=== PATIENT | male | born 1950 | race Caucasian/White ===

== ENCOUNTER 2020-05-27 09:49 | Inpatient (IN) | payer MEDICARE, OTHER ==
[~2020-05-27] VITALS: Ht 170.2 cm; Wt 72.2 kg
[2020-05-27] MEDS ORDERED: CALC.25 PO (10:08)
[2020-05-27] MEDS ORDERED: Fosinopril Sodi10 MG PO (10:08)
[2020-05-27] MEDS ORDERED: GABA100 PO (10:10)
[2020-05-27] MEDS ORDERED: Norco 10-325 T1 EACH PO (10:11)
[2020-05-27] MEDS ORDERED: EUTHYROX100 MC1 PO (10:12)
[2020-05-27] MEDS ORDERED: BASAGLAR K100 UNIT/1 SC (10:12)
[2020-05-27] MEDS ORDERED: Narcan 0.40.4 MG/ML (10:13)
[2020-05-27] MEDS ORDERED: TRIA15CR3 TOP (10:14)
[2020-05-27 11:04] LABS: BASOPHILS ABSOLUTE AUTO 0.03 K/mm3 (0.00-0.23); BASOPHILS PERCENT AUTO 1 % (0-2); EOSINOPHILS ABSOLUTE AUTO 0.15 K/mm3 (0.00-0.68); EOSINOPHILS PERCENT AUTO 3 % (0-6); Hematocrit 30.8 % (37.0-53.0); Hemoglobin 9.7 g/dL (13.5-17.5); IMMATURE GRAN ABSOLUTE AUTO 0.01 K/mm3 (0.00-0.10); IMMATURE GRAN PERCENT AUTO 0 % (0-1); LYMPHOCYTES ABSOLUTE AUTO 1.11 K/mm3 (0.84-5.20); LYMPHOCYTES PERCENT AUTO 23 % (21-46); MONOCYTES ABSOLUTE AUTO 0.55 K/mm3 (0.16-1.47); MONOCYTES PERCENT AUTO 11 % (4-13); Mean Corpuscular HGB 30.9 pg (26.0-34.0); Mean Corpuscular HGB Conc 31.5 g/dL (31.5-36.5); Mean Corpuscular Volume 98 fL (80-100); Mean Platelet Volume 10.5 fL (9.1-12.4); NEUTROPHILS ABSOLUTE AUTO 2.98 K/mm3 (1.96-9.15); NEUTROPHILS PERCENT AUTO 62 % (41-73); Platelet Count 223 K/mm3 (150-400); RDW Coefficient Variation 12.4 % (11.7-14.2); RDW Standard Deviation 44.7 fL (35.1-46.3); Red Blood Cell Count 3.14 M/mm3 (4.30-5.90); White Blood Cell Count 4.83 K/mm3 (4.00-11.30)
[2020-05-27 11:32] LABS: Albumin, Blood 3.4 g/dL (3.4-5.0); Albumin/Globulin Ratio 1.1 (0.8-1.8); Bilirubin, Total 0.4 mg/dL (0.1-1.0); Bun/Creatinine Ratio 15.8 (12.0-20.0); Calcium, Blood 8.7 mg/dL (8.5-10.1); Creatinine, Blood 1.9 mg/dL (0.60-1.20); Globulin, Blood 3.2 g/dL (2.2-4.0); Potassium, Blood 4.9 mmol/L (3.5-5.5); Total Protein, Blood 6.6 g/dL (6.4-8.2)
[2020-05-27 11:34] LABS: Troponin I 0.755 ng/mL (0.000-0.040)
[2020-05-27] MEDS ORDERED: Aspirin EC81 MG PO (12:42)
[2020-05-27] MEDS ORDERED: Aspir 8181 MG PO (13:54)
[2020-05-27] MEDS ORDERED: HUMALOG KW100 UNIT/1 SC (13:57)
--- NOTE | 2020-05-27 13:59 | NUR ---
Echocardiogram completed.
[2020-05-27] MEDS ORDERED: FERSU300 PO (14:26)
--- NOTE | 2020-05-27 17:49 | NUR ---
SHIFT SUMMARY ED ADMIT THIS AFTERNOON. PATIENT DENIES PAIN, NAUSEA, AND SHORTNESS OF BREATH. PATIENT UP SBA IN ROOM, USING URINAL AT BEDSIDE. TRENDING TROPONINS. CARDIOLOGY CONSULTED. PATIENT ANXIOUS AND TEARFUL ABOUT HIS DOGS BEING HOME ALONE.
[2020-05-28 04:21] LABS: Hematocrit 30.8 % (37.0-53.0); Mean Corpuscular HGB 31.2 pg (26.0-34.0); Mean Corpuscular HGB Conc 32.5 g/dL (31.5-36.5); Mean Corpuscular Volume 96 fL (80-100); Mean Platelet Volume 10.2 fL (9.1-12.4); Platelet Count 208 K/mm3 (150-400); RDW Coefficient Variation 12.2 % (11.7-14.2); RDW Standard Deviation 42.5 fL (35.1-46.3); Red Blood Cell Count 3.21 M/mm3 (4.30-5.90); White Blood Cell Count 5.68 K/mm3 (4.00-11.30)
[2020-05-28 04:35] LABS: International Normalized Ratio 1.01; Prothrombin Time Results 10.8 Sec (9.7-11.5)
[2020-05-28 04:46] LABS: Anion Gap 4 mmol/L (6-16); Blood Urea Nitrogen 33 mg/dL (8-24); Bun/Creatinine Ratio 17.2 (12.0-20.0); CHOL/HDL RATIO 2.5; CO2, Blood 31 mmol/L (21-32); Calcium, Blood 8.6 mg/dL (8.5-10.1); Chloride, Blood 103 mmol/L (98-108); Cholesterol 150 mg/dL (50-200); Creatinine, Blood 1.92 mg/dL (0.60-1.20); Glomerular Filtration Rate 37 (60-); Glucose, Blood 212 mg/dL (70-99); HDL Cholesterol 60 mg/dL (>39); LDL/HDL RATIO 1.2; Low Density Lipoprotein Chol 75 mg/dL (0-110); Magnesium, Blood 1.8 mg/dL (1.6-2.4); Potassium, Blood 4.7 mmol/L (3.5-5.5); Sodium, Blood 138 mmol/L (136-145); Triglycerides 77 mg/dL (30-160); Very Low Density Lipoprot Chol 15 mg/dL (6-32)
--- NOTE | 2020-05-28 04:53 | NUR ---
END OF SHIFT SUMMARY PT AXO. VSS. HAS DENIED CP/PRESSURE T/O SHIFT. REMAINS SR 60'S TO 70'S. REMAINS ON RA. PT NPO THIS AM FOR STRESS TEST ORDERED. PT USING CALL LIGHT APPROPRIATELY. BED IN LOW POSITION. WILL CONTINUE TO MONITOR UNTIL SHIFT CHANGE.
--- NOTE | 2020-05-28 08:35 | NUR ---
pt laying in bed awake, a/ox3, pleasant and cooperative with care, follows commands well, denies any pain, reports he never had c.p. just sob, states he slept ok, lungs are clear t/o, resp even and unlabored, he reports no sob while at rest, only with activity, on r/a, hrr, tele in place running sr in the 60's, no edema noted, ppp+2, cap refill <3sec, vs stalbe, afebrile, iv site is clear and patent, btx4, abd flat soft nontender, voids without diff, skin c/w/d, maew, chuck, call light in reach, assisted to br, gait noted to be steady.
--- NOTE | 2020-05-28 13:25 | NUR ---
DR WEBSTER WAS IN TO SEE PT, PT DECIDED TO OPT FOR ANGIOGRAM OPPOSED TO STRESS TEST. STRESS TEST TO BE CANCELED AND PT WILL GO FOR ANGIO IN THE AM
--- NOTE | 2020-05-28 17:19 | NUR ---
SHIFT NOTE THIS RN ASSUMED PT CARE AT 1300 TODAY. SINCE ASSUMING PT CARE PT HAS OPTED TO GO FOR ANGIO IN THE AM INSTEAD OF HAVING STRESS TEST TODAY. PT SINCE HAS EXPRESSED CONCERN THAT HE DID NOT ASK DR WEBSTER ENOUGH QUESTIONS, PT AND FAMILY THAT ARE TEXTING HAVE THIER QUESTIONS ABOUT PROCEDURE ANSWERED. PT DOES NOT APPEAR TO HAVE A GREAT UNDERSTANDING OF MEDICAL INFORMATION BUT DOES EXPRESS UNDERSTAND WHEN THIS RN EDUCATED HIM. PT'S MORNING AND AFTERNOON INSULIN WERE HELD HE WAS NPO AND COVERAGE WAS NOT INDICATED.
--- NOTE | 2020-05-29 05:22 | NUR ---
END OF SHIFT SUMMARY PT STATED NO CHEST PAIN, BUT STATED DULL CONSISTANT PAIN IN LEGS THROUGH OUT SHIFT. AMBULATED IN [place] ABOUT 150FT, TOLERATED WELL WITH INCREASED LEG PAIN. BP STABLE 95-110 SYSTOLIC. SR RHYTHM. PT WAS QUIET AND SLEPT MAJORITY OF THE NIGHT.
--- NOTE | 2020-05-29 07:39 | NUR ---
ASSUMED PATIENT CARE. PATIENT SLEEPING COMFORTABLY IN BED, NO SIGNS OF ACUTE DISTRESS, WCTM.
--- NOTE | 2020-05-29 11:42 | NUR ---
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 NO SIGNS OF ACUTE DISTRESS, TR BAND IN PLACE, NO BLEEDING/HEMATOMA, WCTM.
--- NOTE | 2020-05-29 13:12 | NUR ---
REPORT GIVEN TO ALPA DELGADO AT [facility].
== END 2020-05-29 13:33 | disposition short-term general hospital (02) | DRG 281 ==
LOC: ER 09:49 → PCU 12:47 → UNDODEPER 15:20 → PCU 05-29 13:33
PROVIDERS: Nurse Practitioner Acute Care; Physician Assistant; ADMIT Internal Medicine
PROC: 4A023N7 Measurement of Cardiac Sampling and Pressure, Left Heart, Percutaneous Approach (ICD-10-PCS; principal; 2020-05-29)
PROC: B211YZZ Fluoroscopy of Multiple Coronary Arteries using Other Contrast (ICD-10-PCS; 2020-05-29)
DX: I21.4 Non-ST elevation (NSTEMI) myocardial infarction (principal); I13.0 Hypertensive heart and chronic kidney disease with heart failure and stage 1 through stage 4 chronic kidney disease, or unspecified chronic kidney disease; I50.20 Unspecified systolic (congestive) heart failure; N18.3 Chronic kidney disease, stage 3 (moderate); E10.22 Type 1 diabetes mellitus with diabetic chronic kidney disease; E78.5 Hyperlipidemia, unspecified; E03.9 Hypothyroidism, unspecified; J44.9 Chronic obstructive pulmonary disease, unspecified; I25.10 Atherosclerotic heart disease of native coronary artery without angina pectoris; D63.1 Anemia in chronic kidney disease; I45.10 Unspecified right bundle-branch block; Z79.82 Long term (current) use of aspirin; Z79.4 Long term (current) use of insulin; Z87.891 Personal history of nicotine dependence
CPT/HCPCS: 36415; 71045; 80048; 80053; 80061; 82947; 83735; 83880; 84439; 84443; 84481; 84484; 85025; 85027; 85347; 85610; 86850; 86900; 86901; 93005; 93010; 93306; 93458; 96372-59; 96374-59; 99152; 99153; 99285-25; A9270-GY; C1769; C1894; J1644; J1940; J2250; J3010; J7030; J7050; Q9967; U0002

== ENCOUNTER 2022-05-20 23:49 | Emergency (ER) | payer MEDICARE ==
[~2022-05-20] VITALS: Ht 170.2 cm; Wt 68.0 kg
[~2022-05-20 23:49] MED LIST: Aspir 8181 MG PO; Aspirin EC81 MG PO; BASAGLAR K100 UNIT/1 SC; CALC.25 PO; EUTHYROX100 MC1 PO; FERSU300 PO; Fosinopril Sodi10 MG PO; GABA100 PO; HUMALOG KW100 UNIT/1 SC; Narcan 0.40.4 MG/ML; Norco 10-325 T1 EACH PO; TRIA15CR3 TOP
[2022-05-21 02:16] LABS: BASOPHILS ABSOLUTE AUTO 0.03 K/mm3 (0.00-0.23); BASOPHILS PERCENT AUTO 0 % (0-2); EOSINOPHILS ABSOLUTE AUTO 0.04 K/mm3 (0.00-0.68); EOSINOPHILS PERCENT AUTO 1 % (0-6); Hematocrit 31.8 % (37.0-53.0); Hemoglobin 10.4 g/dL (13.5-17.5); IMMATURE GRAN ABSOLUTE AUTO 0.04 K/mm3 (0.00-0.10); IMMATURE GRAN PERCENT AUTO 1 % (0-1); LYMPHOCYTES ABSOLUTE AUTO 0.78 K/mm3 (0.84-5.20); LYMPHOCYTES PERCENT AUTO 10 % (21-46); MONOCYTES ABSOLUTE AUTO 0.61 K/mm3 (0.16-1.47); MONOCYTES PERCENT AUTO 8 % (4-13); Mean Corpuscular HGB 30.9 pg (26.0-34.0); Mean Corpuscular HGB Conc 32.7 g/dL (31.5-36.5); Mean Corpuscular Volume 94 fL (80-100); NEUTROPHILS ABSOLUTE AUTO 6.51 K/mm3 (1.96-9.15); NEUTROPHILS PERCENT AUTO 81 % (41-73); RDW Coefficient Variation 11.9 % (11.7-14.2); RDW Standard Deviation 41.3 fL (35.1-46.3); Red Blood Cell Count 3.37 M/mm3 (4.30-5.90); White Blood Cell Count 8.01 K/mm3 (4.00-11.30)
[2022-05-21 02:22] LABS: Albumin, Blood 3.6 g/dL (3.4-5.0); Albumin/Globulin Ratio 1.2 (0.8-1.8); Bilirubin, Total 0.5 mg/dL (0.1-1.0); Bun/Creatinine Ratio 14.9 (12.0-20.0); Calcium, Blood 8.4 mg/dL (8.5-10.1); Creatinine, Blood 1.61 mg/dL (0.60-1.20); Globulin, Blood 2.9 g/dL (2.2-4.0); Potassium, Blood 4.1 mmol/L (3.5-5.5); Total Protein, Blood 6.5 g/dL (6.4-8.2)
[2022-05-21 02:36] LABS: Mean Platelet Volume 10.5 fL (9.1-12.4); Platelet Count 150 K/mm3 (150-400)
[2022-05-21 05:14] LABS: Source, Urine Voided
[2022-05-21 05:19] LABS: Bilirubin, Urine Neg (Neg); Blood, Urine 2+ (Neg); Glucose Qualitative, Urine 2+ (Neg); Ketones, Urine Neg (Neg); Leukocyte Esterase, Urine Neg (Neg); Nitrite, Urine Neg (Neg); Protein, Urine 1+ (Neg); Urobilinogen, Urine NORM (Normal)
[2022-05-21 06:02] LABS: Appearance, Urine Clear (Clear); Color, Urine Yellow (P-Yellow)
[2022-05-21 06:03] LABS: Bacteria Not Seen /hpf; Squamous Epithelial Cells Few /hpf (Few); White Blood Cells, Urine Not Seen /hpf (0-5)
== END 2022-05-21 06:41 | disposition home or self-care (01) ==
LOC: ER 23:49
PROVIDERS: Emergency Medicine
DX: E10.649 Type 1 diabetes mellitus with hypoglycemia without coma (principal); M25.551 Pain in right hip; W17.2XXA Fall into hole, initial encounter; I12.9 Hypertensive chronic kidney disease with stage 1 through stage 4 chronic kidney disease, or unspecified chronic kidney disease; E10.22 Type 1 diabetes mellitus with diabetic chronic kidney disease; N18.30 Chronic kidney disease, stage 3 unspecified; E03.9 Hypothyroidism, unspecified; Z79.899 Other long term (current) drug therapy; Z79.4 Long term (current) use of insulin; Z87.891 Personal history of nicotine dependence
CPT/HCPCS: 73502; 80053; 81001; 85025

== ENCOUNTER 2022-07-10 01:10 | Inpatient (IN) | payer MEDICARE ==
[~2022-07-10] VITALS: Ht 170.2 cm; Wt 64.5 kg
[2022-07-10 03:19] LABS: BASOPHILS ABSOLUTE AUTO 0.03 K/mm3 (0.00-0.23); BASOPHILS PERCENT AUTO 0 % (0-2); EOSINOPHILS ABSOLUTE AUTO 0.09 K/mm3 (0.00-0.68); EOSINOPHILS PERCENT AUTO 1 % (0-6); Hematocrit 30.7 % (37.0-53.0); Hemoglobin 9.7 g/dL (13.5-17.5); IMMATURE GRAN ABSOLUTE AUTO 0.03 K/mm3 (0.00-0.10); IMMATURE GRAN PERCENT AUTO 0 % (0-1); LYMPHOCYTES ABSOLUTE AUTO 1.19 K/mm3 (0.84-5.20); LYMPHOCYTES PERCENT AUTO 14 % (21-46); MONOCYTES ABSOLUTE AUTO 1.06 K/mm3 (0.16-1.47); MONOCYTES PERCENT AUTO 12 % (4-13); Mean Corpuscular HGB 30.5 pg (26.0-34.0); Mean Corpuscular HGB Conc 31.6 g/dL (31.5-36.5); Mean Corpuscular Volume 97 fL (80-100); Mean Platelet Volume 10.5 fL (9.1-12.4); NEUTROPHILS PERCENT AUTO 72 % (41-73); Platelet Count 176 K/mm3 (150-400); RDW Coefficient Variation 12.2 % (11.7-14.2); RDW Standard Deviation 43.2 fL (35.1-46.3); Red Blood Cell Count 3.18 M/mm3 (4.30-5.90)
[2022-07-10 03:34] LABS: Bun/Creatinine Ratio 16.6 (12.0-20.0); Creatinine, Blood 1.57 mg/dL (0.60-1.20); Potassium, Blood 4.5 mmol/L (3.5-5.5)
[2022-07-10 04:11] LABS: International Normalized Ratio 1.12; Prothrombin Time Results 11.7 Sec (9.7-11.5)
[2022-07-10 04:25] LABS: Source, Urine Foley catheter
[2022-07-10] MEDS ORDERED: LISI5 PO (04:26)
[2022-07-10] MEDS ORDERED: CARV3.125 PO (04:28)
--- NOTE | 2022-07-10 04:56 | NUR ---
PT NEW ER ADMIT FOR RIGHT HIP FX. PT A/O, VSS. RLE SHORTENED, CAP REFILL WNL, PEDAL PULSES WEAK, PT DENIES N/T. ABRASION NOTED TO RIGHT FORARM/ELBOW. PT ORIENTED TO ROOM/CALL LIGHT AND NPO STATUS. PLAN TO AWAIT ORTHO CONSULT.
[2022-07-10 05:09] LABS: Appearance, Urine Clear (Clear); Bilirubin, Urine Neg (Neg); Blood, Urine 3+ (Neg); Color, Urine Yellow (P-Yellow); Glucose Qualitative, Urine 3+ (Neg); Ketones, Urine Neg (Neg); Leukocyte Esterase, Urine Neg (Neg); Nitrite, Urine Neg (Neg); Protein, Urine 2+ (Neg); Urobilinogen, Urine NORM (Normal)
[2022-07-10 05:19] LABS: Bacteria Few /hpf; Hyaline Casts 0-2 /lpf (0-2); Squamous Epithelial Cells Rare /hpf (Few); White Blood Cells, Urine 0-2 /hpf (0-5)
[2022-07-10 06:13] LABS: SARS-Cov-2 (COVID-19) PCR, MMC NEGATIVE (NEGATIVE)
--- NOTE | 2022-07-10 07:50 | NUR ---
PT NEW ADMIT THIS AM FOR R HIP FX. PT VSS SINCE ARRIVING TO FLOOR. MED FOR PAIN X1 W/REP RELIEF. PT NPO, AWAITING ORTHO CONSULT.
--- NOTE | 2022-07-10 14:12 | NUR ---
PT HAS A 20 IV IN LEFT HAND THAT FLUSHES WELL AND SHOWS NO SIGNS OF INFILTRATION.
--- NOTE | 2022-07-10 14:41 | NUR ---
PT TO DAY SURGERY AT THIS TIME.
--- NOTE | 2022-07-10 17:37 | NUR ---
SHIFT SUMMARY PT CAME IN FOR R HIP FRACTURE AFTER FALLING AT HOME. PT TO DAY SURGERY FOR HIP REPAIR. 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 PT STILL IN DAY SURGERY AT THIS TIME.
--- NOTE | 2022-07-10 20:41 | NUR ---
CARE ASSUMPTION PT A&OX4, DROWSY. SP02>90% ON RA, RR 14. R HIP FX, HAD SURGERY THIS AFTERNOON. SITE W/ 3 AQUACEL, NO SATURATION OF DRESSINGS. PEDAL PULSES EQUAL. PT C/O OF 10/10 R HIP PAIN. D/T PT SHALLOW/SLOW RESPIRATIONS, EDUCATED PT ON PAIN MEDS AFFECT ON RESPIRATORY STATUS AND OPTED FOR APPLIED ICE TO AFFECTED AREA. ICE ON FOR 20 MIN PER ORDERS, PT STATES SOME RELIEF WITH COLD APPLICATION. WILL CONTINUE TO APPLY ICE HOURLY AND MONITOR PAIN/RESPIRATORY STATUS. BRAY DRAINING TO GRAVITY. CALL LIGHT IN REACH.
[2022-07-11 05:52] LABS: BASOPHILS PERCENT AUTO 0 % (0-2); EOSINOPHILS PERCENT AUTO 0 % (0-6); Hematocrit 26.4 % (37.0-53.0); Hemoglobin 8.6 g/dL (13.5-17.5); IMMATURE GRAN ABSOLUTE AUTO 0.02 K/mm3 (0.00-0.10); IMMATURE GRAN PERCENT AUTO 0 % (0-1); LYMPHOCYTES ABSOLUTE AUTO 0.52 K/mm3 (0.84-5.20); LYMPHOCYTES PERCENT AUTO 6 % (21-46); MONOCYTES ABSOLUTE AUTO 0.84 K/mm3 (0.16-1.47); MONOCYTES PERCENT AUTO 10 % (4-13); Mean Corpuscular HGB 31.5 pg (26.0-34.0); Mean Corpuscular HGB Conc 32.6 g/dL (31.5-36.5); Mean Corpuscular Volume 97 fL (80-100); Mean Platelet Volume 10.9 fL (9.1-12.4); NEUTROPHILS ABSOLUTE AUTO 6.82 K/mm3 (1.96-9.15); NEUTROPHILS PERCENT AUTO 83 % (41-73); Platelet Count 142 K/mm3 (150-400); RDW Coefficient Variation 12.1 % (11.7-14.2); RDW Standard Deviation 42.7 fL (35.1-46.3); Red Blood Cell Count 2.73 M/mm3 (4.30-5.90)
[2022-07-11 06:17] LABS: Anion Gap 10 mmol/L (6-16); Blood Urea Nitrogen 32 mg/dL (8-24); Bun/Creatinine Ratio 21.5 (12.0-20.0); CO2, Blood 23 mmol/L (21-32); Calcium, Blood 8.3 mg/dL (8.5-10.1); Chloride, Blood 103 mmol/L (98-108); Creatinine, Blood 1.49 mg/dL (0.60-1.20); Glomerular Filtration Rate 49 (60-); Glucose, Blood 300 mg/dL (70-99); Phosphorus, Blood 4.1 mg/dL (2.5-4.9); Potassium, Blood 5.4 mmol/L (3.5-5.5); Sodium, Blood 136 mmol/L (136-145)
--- NOTE | 2022-07-11 09:22 | NUR ---
PT CBG 361, CALL MADE TO DR. DOWLING. SEE NEW ORDERS.
--- NOTE | 2022-07-11 15:17 | NUR ---
PT ABLE TO SIT ON EDGE OF THE BED WITH THE HELP OF THIS RN AND SAE PABLO. PT ATTEMPTED TO STANDS USING WALKER AND TTWB BUT WASN'T ABLE TO DUE TO WEAKNESS AND PAIN. PT MEDICATED WITH BREAKTHROUGH FENTANYAL AND STILL UNABLE TO STAND. PT HELPED BACK INTO BED. CALL LIGHT IN REACH.
--- NOTE | 2022-07-11 19:53 | NUR ---
HIGH CBG: AT [address] DOWLING NOTIFIED SEE ADDITIONAL INSULIN COVERAGE, ORDERED X1 DOSE.
--- NOTE | 2022-07-11 19:55 | NUR ---
CBG'S: INSULIN PER CARB COUNT ORDERED FOR DINNER. PER CARB COUNT, PT TO RECEIVE 3 UNITS FOR A CBG OF 333. DR. DOWLING CALLED TO VERIFY THIS ORDER. SEE NEW ORDERS.
--- NOTE | 2022-07-11 19:58 | NUR ---
SUMMARY: PT IS POD1 R HIP REPAIR. A/O, VSS, TELE WNL. SURGICAL SITE HAS SOME SHADOWING, NO ACTIVE BLEED NOTED TONIGHT. CSM INTACT. SEE PREVIOUS NOTES AND EMAR FOR DETAILS ON INSULIN COVERAGE. PT PAIN APPEARS TO BE WELL MANAGED WHILE AT REST WITH 1 NARCO Q4. NO ACUTE CONCERNS AT THIS TIME. REPORT PASSED TO NOC DANNY FRANCO
--- NOTE | 2022-07-12 07:39 | NUR ---
SUMMARY PT INTOLERANT OF REPOSITIONING MOST OF SHIFT. AFTR 2 DOSES OF NORCO 2 PO PT ALLOWING REPOSITIONING.FINALLY ABLE TO CHECK SKIN TO BOTTOM AND CHANGE R HIP DRESSINGS.DAY RN AND THIS RN SPOKE WITH PT ABOUT IMPORTANCE OF GETTING OOB, REPOSITIONING ANC CDB.URINE IN BRAY GETTING MEDICARE COMPLIANCE AUDITOR AND SATISF OUTPUT WITH ACTIVITY CAN D/C TODAY.
[2022-07-12 13:27] LABS: SARS-Cov-2 (COVID-19) PCR, MMC NEGATIVE (NEGATIVE)
--- NOTE | 2022-07-12 13:44 | NUR ---
Pt. is drowsing in a recliner, but responds when I enter the room. Pt. is pleasant but is unsettled about spiritual things and upcoming transfer to a SNF. Listen empathetically, and facilitated a life review. Pt. verbalized that he has suffered losses in his family and has not identified with people of [place] because of the pain of loss. Provide pastoral care, and seek to normalize the Pt. experience. Built rapport with Pt. Pt. verbalized gratitude for the spiritual care visit.
--- NOTE | 2022-07-12 18:24 | NUR ---
SHIFT SUMMARY PT POD #2 FOR R FEMUR PINNING. PT'S PAIN CONTROL IMPROVED TODAY AND HE WAS ABLE TO AMBULATED TO THE CHAIR WITH A 2 PERSON ASSIST. ASA DC'D AND PT ABLE TO VOID IN THE BSC. AQUACEL DRESSINGS CHANGED THIS AM AND REMAIN CDI. LOW SLIDING SCALE ADDED TO CARB COUNT AND BLOOD GLUCOSE BETTER CONTROLLED. PT DC'D TO EULALIA HARRISON AND REPORT CALLED TO EULALIA HARRISON RN.
== END 2022-07-12 18:06 | DRG 482 ==
LOC: ER 01:10 → SURS 03:10
PROVIDERS: Internal Medicine; Student in an Organized Health Care Education/Training Program; ADMIT Internal Medicine
PROC: 0QS606Z Reposition Right Upper Femur with Intramedullary Internal Fixation Device, Open Approach (ICD-10-PCS; principal; 2022-07-11)
DX: S72.141A Displaced intertrochanteric fracture of right femur, initial encounter for closed fracture (principal); Z20.822 Contact with and (suspected) exposure to COVID-19; I12.9 Hypertensive chronic kidney disease with stage 1 through stage 4 chronic kidney disease, or unspecified chronic kidney disease; D63.1 Anemia in chronic kidney disease; N18.30 Chronic kidney disease, stage 3 unspecified; I25.10 Atherosclerotic heart disease of native coronary artery without angina pectoris; E10.22 Type 1 diabetes mellitus with diabetic chronic kidney disease; E03.9 Hypothyroidism, unspecified; E10.65 Type 1 diabetes mellitus with hyperglycemia; J44.9 Chronic obstructive pulmonary disease, unspecified; I25.2 Old myocardial infarction; Z95.1 Presence of aortocoronary bypass graft; Z87.891 Personal history of nicotine dependence; Z79.4 Long term (current) use of insulin; Z79.82 Long term (current) use of aspirin; Z79.899 Other long term (current) drug therapy; W18.39XA Other fall on same level, initial encounter; Y92.194 Driveway of other specified residential institution as the place of occurrence of the external cause
CPT/HCPCS: 36415; 51702; 73502; 73552; 80048; 80069; 81001; 82947; 85025; 85610; 85730; 86850; 86900; 86901; 96374-59; 96375-59; 96376-59; 97110; 97161; 97530; 99285-25; A9270; C1713; J0690; J1100; J1170; J1650; J1815; J2405; J3010; J7120; U0004

== ENCOUNTER 2022-12-11 18:48 | Observation (INO) | payer MEDICARE, OTHER ==
[~2022-12-11] VITALS: Ht 170.2 cm; Wt 70.3 kg
[~2022-12-11 18:48] MED LIST changes: +CARV25 PO; +LISI5 PO
[2022-12-11 19:18] LABS: BASOPHILS ABSOLUTE AUTO 0.03 K/mm3 (0.00-0.23); BASOPHILS PERCENT AUTO 1 % (0-2); EOSINOPHILS ABSOLUTE AUTO 0.27 K/mm3 (0.00-0.68); EOSINOPHILS PERCENT AUTO 4 % (0-6); Hematocrit 32.9 % (37.0-53.0); IMMATURE GRAN ABSOLUTE AUTO 0.03 K/mm3 (0.00-0.10); IMMATURE GRAN PERCENT AUTO 1 % (0-1); LYMPHOCYTES ABSOLUTE AUTO 1.37 K/mm3 (0.84-5.20); LYMPHOCYTES PERCENT AUTO 21 % (21-46); MONOCYTES ABSOLUTE AUTO 0.69 K/mm3 (0.16-1.47); MONOCYTES PERCENT AUTO 11 % (4-13); Mean Corpuscular HGB 30.8 pg (26.0-34.0); Mean Corpuscular HGB Conc 33.4 g/dL (31.5-36.5); Mean Corpuscular Volume 92 fL (80-100); Mean Platelet Volume 10.5 fL (9.1-12.4); NEUTROPHILS ABSOLUTE AUTO 4.04 K/mm3 (1.96-9.15); NEUTROPHILS PERCENT AUTO 63 % (41-73); Platelet Count 197 K/mm3 (150-400); RDW Coefficient Variation 12.9 % (11.7-14.2); RDW Standard Deviation 43.9 fL (35.1-46.3); Red Blood Cell Count 3.57 M/mm3 (4.30-5.90); White Blood Cell Count 6.43 K/mm3 (4.00-11.30)
[2022-12-11 19:42] LABS: Albumin, Blood 3.4 g/dL (3.4-5.0); Bilirubin, Total 0.5 mg/dL (0.1-1.0); Calcium, Blood 8.8 mg/dL (8.5-10.1); Creatinine, Blood 1.87 mg/dL (0.60-1.20); Globulin, Blood 3.5 g/dL (2.2-4.0); Potassium, Blood 4.5 mmol/L (3.5-5.5); Total Protein, Blood 6.9 g/dL (6.4-8.2)
[2022-12-11] MEDS ORDERED: AMLODIPINE BES2.5 MG PO (23:24)
[2022-12-11] MEDS ORDERED: Cardura1 MG PO (23:25)
[2022-12-11] MEDS ORDERED: ATOR40TA PO (23:27)
[2022-12-12] MEDS ORDERED: HUMALOG KW100 UNIT/1 SC (00:10)
[2022-12-12] MEDS ORDERED: MIRALAX17 GM PO (00:11)
--- NOTE | 2022-12-12 05:22 | NUR ---
PT IS A&O4, INDEPENDENT WITH ADLS, RA, VSS, NO COMPLAINTS OF CHEST PAIN THIS SHIFT, STRESS TEST AND ECHO OREDERED, CONTINUE POC
[2022-12-12 06:13] LABS: Albumin, Blood 3.2 g/dL (3.4-5.0); Anion Gap 4 mmol/L (6-16); Blood Urea Nitrogen 26 mg/dL (8-24); Bun/Creatinine Ratio 15.3 (12.0-20.0); CO2, Blood 25 mmol/L (21-32); Calcium, Blood 8.7 mg/dL (8.5-10.1); Chloride, Blood 109 mmol/L (98-108); Glomerular Filtration Rate 42 (60-); Glucose, Blood 117 mg/dL (70-99); Phosphorus, Blood 2.8 mg/dL (2.5-4.9); Potassium, Blood 4.2 mmol/L (3.5-5.5); Sodium, Blood 138 mmol/L (136-145)
--- NOTE | 2022-12-12 19:00 | NUR ---
END OF SHIFT SUMMARY: PATIENT DENIED PAIN OR DISCOMFORT THROUGHOUT THE DAY. PATIENT UP TO THE BATHROOM ROOM MULTIPLE TIMES. PATIENT REPORTED MILD SHORTNESS OF BREATH, BUT DENIED THE LEVEL OF SHORTNESS OF BREATH THAT BROUGHT HIM INTO THE HOSPITAL. PATIENT HAD HIS STRESS TEST TODAY. PATIENT TOLERATED WELL. PER DR. GONZÁLES, PATIENT READY FOR DISCHARGE. DISCHARGE INSTRUCTIONS AND EDUCATION PROVIDED TO THE PATIENT. ALL QUESTIONS AND CONCERNS ADDRESSED. NO NEW RX TO HAVE ORDERED. PATIENT DISCHARGED IN WHEELCHAIR WITH SUPERVISOR PREPRESS. PATIENT STABLE AT TIME OF DISCHARGE.
== END 2022-12-12 18:40 | disposition home or self-care (01) ==
LOC: ER 18:48 → MEDS 18:49
PROVIDERS: Emergency Medicine; ADMIT Internal Medicine
DX: R06.00 Dyspnea, unspecified (principal); I25.10 Atherosclerotic heart disease of native coronary artery without angina pectoris; Z95.1 Presence of aortocoronary bypass graft; J44.9 Chronic obstructive pulmonary disease, unspecified; E10.22 Type 1 diabetes mellitus with diabetic chronic kidney disease; N18.30 Chronic kidney disease, stage 3 unspecified; I12.9 Hypertensive chronic kidney disease with stage 1 through stage 4 chronic kidney disease, or unspecified chronic kidney disease; D63.1 Anemia in chronic kidney disease; Z87.891 Personal history of nicotine dependence
CPT/HCPCS: 36415; 71046; 78452; 80053; 80069; 82947; 84484; 85025; 93005; 93010; 93017; 93306; 94760; 96372; A9270; A9500; G0378; J0280; J1650; J1815; J2785

== ENCOUNTER 2024-04-19 11:11 | Emergency (ER) | payer MEDICARE ==
[~2024-04-19] VITALS: Ht 170.2 cm; Wt 70.3 kg
[~2024-04-19 11:11] MED LIST changes: +AMLODIPINE BES2.5 MG PO; +ATOR40TA PO; +Cardura1 MG PO; +MIRALAX17 GM PO
[2024-04-19 12:26] VITALS: BP 150/51
== END 2024-04-19 13:03 | disposition home or self-care (01) ==
LOC: ER 11:11
DX: R07.89 Other chest pain (principal); E10.22 Type 1 diabetes mellitus with diabetic chronic kidney disease; I12.9 Hypertensive chronic kidney disease with stage 1 through stage 4 chronic kidney disease, or unspecified chronic kidney disease; N18.9 Chronic kidney disease, unspecified; I25.2 Old myocardial infarction; E03.9 Hypothyroidism, unspecified; Z79.4 Long term (current) use of insulin; Z79.82 Long term (current) use of aspirin; Z79.85 Long-term (current) use of injectable non-insulin antidiabetic drugs
CPT/HCPCS: 71046; 93005; 93010; 99283-25

== ENCOUNTER 2024-10-06 17:04 | Emergency (ER) | payer MEDICARE ==
[~2024-10-06] VITALS: Ht 170.2 cm; Wt 69.8 kg
[2024-10-06 17:31] LABS: BASOPHILS ABSOLUTE AUTO 0.04 K/mm3 (0.00-0.23); BASOPHILS PERCENT AUTO 0 % (0-2); EOSINOPHILS ABSOLUTE AUTO 0.06 K/mm3 (0.00-0.68); EOSINOPHILS PERCENT AUTO 1 % (0-6); Hematocrit 38.3 % (37.0-53.0); Hemoglobin 12.7 g/dL (13.5-17.5); IMMATURE GRAN ABSOLUTE AUTO 0.04 K/mm3 (0.00-0.10); IMMATURE GRAN PERCENT AUTO 0 % (0-1); LYMPHOCYTES ABSOLUTE AUTO 1.41 K/mm3 (0.84-5.20); LYMPHOCYTES PERCENT AUTO 16 % (21-46); MONOCYTES ABSOLUTE AUTO 0.88 K/mm3 (0.16-1.47); MONOCYTES PERCENT AUTO 10 % (4-13); Mean Corpuscular HGB 32.3 pg (26.0-34.0); Mean Corpuscular HGB Conc 33.2 g/dL (31.5-36.5); Mean Corpuscular Volume 98 fL (80-100); Mean Platelet Volume 9.7 fL (9.1-12.4); NEUTROPHILS ABSOLUTE AUTO 6.67 K/mm3 (1.96-9.15); NEUTROPHILS PERCENT AUTO 73 % (41-73); Platelet Count 256 K/mm3 (150-400); RDW Coefficient Variation 12.7 % (11.7-14.2); RDW Standard Deviation 45.7 fL (35.1-46.3); Red Blood Cell Count 3.93 M/mm3 (4.30-5.90)
[2024-10-06 18:23] LABS: Albumin, Blood 3.9 g/dL (3.4-5.0); Bilirubin, Total 0.8 mg/dL (0.1-1.0); Bun/Creatinine Ratio 13.3 (12.0-20.0); Creatinine, Blood 2.86 mg/dL (0.60-1.20); Globulin, Blood 3.8 g/dL (2.2-4.0); Total Protein, Blood 7.7 g/dL (6.4-8.2)
[2024-10-06] MEDS ORDERED: DAPAGLIFLOZIN10 MG PO (20:37)
[2024-10-06 21:06] VITALS: BP 116/60
== END 2024-10-06 21:06 | disposition home or self-care (01) ==
LOC: ER 17:04
PROVIDERS: Student in an Organized Health Care Education/Training Program
DX: R07.81 Pleurodynia (principal); E10.22 Type 1 diabetes mellitus with diabetic chronic kidney disease; I12.9 Hypertensive chronic kidney disease with stage 1 through stage 4 chronic kidney disease, or unspecified chronic kidney disease; N18.9 Chronic kidney disease, unspecified; I25.2 Old myocardial infarction; E03.9 Hypothyroidism, unspecified; Z95.1 Presence of aortocoronary bypass graft; Z79.82 Long term (current) use of aspirin; Z79.4 Long term (current) use of insulin; Z79.890 Hormone replacement therapy; Z79.899 Other long term (current) drug therapy
CPT/HCPCS: 71046; 80053; 83880; 84484; 85025; 93005; 93010; 99284-25

== ENCOUNTER 2025-01-10 10:59 | Emergency (ER) | payer MEDICARE ==
[~2025-01-10] VITALS: Ht 170.2 cm; Wt 70.3 kg
[~2025-01-10 10:59] MED LIST changes: +DAPAGLIFLOZIN10 MG PO
[2025-01-10 11:48] LABS: BASOPHILS ABSOLUTE AUTO 0.03 K/mm3 (0.00-0.23); BASOPHILS PERCENT AUTO 0 % (0-2); EOSINOPHILS ABSOLUTE AUTO 0.27 K/mm3 (0.00-0.68); EOSINOPHILS PERCENT AUTO 3 % (0-6); Hematocrit 34.7 % (37.0-53.0); Hemoglobin 11.4 g/dL (13.5-17.5); IMMATURE GRAN ABSOLUTE AUTO 0.05 K/mm3 (0.00-0.10); IMMATURE GRAN PERCENT AUTO 1 % (0-1); LYMPHOCYTES ABSOLUTE AUTO 1.12 K/mm3 (0.84-5.20); LYMPHOCYTES PERCENT AUTO 12 % (21-46); MONOCYTES ABSOLUTE AUTO 1.28 K/mm3 (0.16-1.47); MONOCYTES PERCENT AUTO 14 % (4-13); Mean Corpuscular HGB 31.8 pg (26.0-34.0); Mean Corpuscular HGB Conc 32.9 g/dL (31.5-36.5); Mean Corpuscular Volume 97 fL (80-100); Mean Platelet Volume 9.6 fL (9.1-12.4); NEUTROPHILS ABSOLUTE AUTO 6.52 K/mm3 (1.96-9.15); NEUTROPHILS PERCENT AUTO 70 % (41-73); Platelet Count 251 K/mm3 (150-400); RDW Coefficient Variation 12.8 % (11.7-14.2); RDW Standard Deviation 45.6 fL (35.1-46.3); Red Blood Cell Count 3.59 M/mm3 (4.30-5.90); White Blood Cell Count 9.27 K/mm3 (4.00-11.30)
[2025-01-10] MEDS ORDERED: TORSE20 PO (11:50)
[2025-01-10] MEDS ORDERED: Ketorolac Tromethamine 15mg Vial IV ONE (11:55)
[2025-01-10 12:28] LABS: Albumin, Blood 3.7 g/dL (3.4-5.0); Bilirubin, Total 0.5 mg/dL (0.1-1.0); Bun/Creatinine Ratio 15.7 (12.0-20.0); Calcium, Blood 9.6 mg/dL (8.5-10.1); Creatinine, Blood 2.8 mg/dL (0.60-1.20); Globulin, Blood 3.8 g/dL (2.2-4.0); Total Protein, Blood 7.5 g/dL (6.4-8.2)
[2025-01-10] MEDS ORDERED: TiZANidine HCl 4 MG Tab PO ONE (12:50)
[2025-01-10] MEDS ORDERED: TIZA4 PO (14:17)
[2025-01-10] MEDS ORDERED: NS 1,000 ML IV SCH (16:10)
[2025-01-10 17:11] VITALS: BP 131/66
== END 2025-01-10 17:10 | disposition home or self-care (01) ==
LOC: ER 10:59
PROVIDERS: Physician Assistant
DX: M54.9 Dorsalgia, unspecified (principal); Z59.89 Other problems related to housing and economic circumstances; Z87.891 Personal history of nicotine dependence; I12.9 Hypertensive chronic kidney disease with stage 1 through stage 4 chronic kidney disease, or unspecified chronic kidney disease; E10.22 Type 1 diabetes mellitus with diabetic chronic kidney disease; N18.9 Chronic kidney disease, unspecified; Z79.899 Other long term (current) drug therapy; Z79.891 Long term (current) use of opiate analgesic; Z79.51 Long term (current) use of inhaled steroids; Z79.52 Long term (current) use of systemic steroids; Z79.83 Long term (current) use of bisphosphonates; Z79.890 Hormone replacement therapy; Z79.82 Long term (current) use of aspirin; Z79.1 Long term (current) use of non-steroidal anti-inflammatories (NSAID)
CPT/HCPCS: 71046; 80053; 84484; 85025; 93005; 93010; 96361; 96374; 99284-25; A9270; J1885; J7030

== ENCOUNTER 2025-01-14 18:29 | Emergency (ER) | payer MEDICARE ==
[~2025-01-14] VITALS: Ht 170.2 cm; Wt 68.0 kg
[~2025-01-14 18:29] MED LIST changes: +TIZA4 PO; +TORSE20 PO
[2025-01-14 18:58] LABS: BASOPHILS ABSOLUTE AUTO 0.03 K/mm3 (0.00-0.23); BASOPHILS PERCENT AUTO 0 % (0-2); EOSINOPHILS PERCENT AUTO 1 % (0-6); Hematocrit 31.7 % (37.0-53.0); Hemoglobin 10.6 g/dL (13.5-17.5); IMMATURE GRAN ABSOLUTE AUTO 0.04 K/mm3 (0.00-0.10); IMMATURE GRAN PERCENT AUTO 1 % (0-1); LYMPHOCYTES ABSOLUTE AUTO 1.05 K/mm3 (0.84-5.20); LYMPHOCYTES PERCENT AUTO 12 % (21-46); MONOCYTES ABSOLUTE AUTO 1.22 K/mm3 (0.16-1.47); MONOCYTES PERCENT AUTO 14 % (4-13); Mean Corpuscular HGB 32.3 pg (26.0-34.0); Mean Corpuscular HGB Conc 33.4 g/dL (31.5-36.5); Mean Corpuscular Volume 97 fL (80-100); Mean Platelet Volume 9.3 fL (9.1-12.4); NEUTROPHILS ABSOLUTE AUTO 6.38 K/mm3 (1.96-9.15); NEUTROPHILS PERCENT AUTO 72 % (41-73); Platelet Count 308 K/mm3 (150-400); RDW Coefficient Variation 13.2 % (11.7-14.2); RDW Standard Deviation 47.7 fL (35.1-46.3); Red Blood Cell Count 3.28 M/mm3 (4.30-5.90); White Blood Cell Count 8.82 K/mm3 (4.00-11.30)
[2025-01-14 19:20] LABS: Albumin, Blood 3.4 g/dL (3.4-5.0); Albumin/Globulin Ratio 0.8 (0.8-1.8); Bilirubin, Total 0.4 mg/dL (0.1-1.0); Bun/Creatinine Ratio 17.5 (12.0-20.0); Calcium, Blood 9.5 mg/dL (8.5-10.1); Creatinine, Blood 2.68 mg/dL (0.60-1.20); Globulin, Blood 4.1 g/dL (2.2-4.0); Potassium, Blood 4.2 mmol/L (3.5-5.5); Total Protein, Blood 7.5 g/dL (6.4-8.2)
[2025-01-14] MEDS ORDERED: Ketorolac Tromethamine 30mg Vial IV ONE (21:00)
[2025-01-14] MEDS ORDERED: Dexamethasone Sod Phos 10 MG/ML 1ML VIAL IV ONE (22:15)
[2025-01-14] MEDS ORDERED: METPRE4DP PO (22:19)
[2025-01-14 22:36] VITALS: BP 166/77
== END 2025-01-14 22:57 | disposition home or self-care (01) ==
LOC: ER 18:29
PROVIDERS: Student in an Organized Health Care Education/Training Program
DX: M54.10 Radiculopathy, site unspecified (principal); E03.9 Hypothyroidism, unspecified; I25.2 Old myocardial infarction; I12.9 Hypertensive chronic kidney disease with stage 1 through stage 4 chronic kidney disease, or unspecified chronic kidney disease; E11.22 Type 2 diabetes mellitus with diabetic chronic kidney disease; N18.9 Chronic kidney disease, unspecified; Z79.4 Long term (current) use of insulin; Z79.82 Long term (current) use of aspirin; Z79.899 Other long term (current) drug therapy
CPT/HCPCS: 72040; 72070; 73502; 80053; 85025; 96374; 96375; 99283-25; J1100; J1885